=== PATIENT | female | born 1945 | race African-American/Black ===

== ENCOUNTER 2023-04-25 15:34 | Emergency (ER) | payer BC ==
[~2023-04-25] VITALS: Ht 165.1 cm; Wt 47.0 kg
[2023-04-25 15:53] VITALS: BP 135/53; PULSE 70; RESP 18; O2SAT 99
== END 2023-04-25 20:48 | disposition left against medical advice (07) ==
LOC: ER 15:34
DX: M25.562 Pain in left knee (principal); M25.561 Pain in right knee; W18.09XA Striking against other object with subsequent fall, initial encounter; Y93.89 Activity, other specified; Y92.89 Other specified places as the place of occurrence of the external cause; Y99.8 Other external cause status
CPT/HCPCS: 73562

== ENCOUNTER 2023-04-26 14:29 | Emergency (ER) | payer BC ==
[~2023-04-26] VITALS: Ht 165.1 cm; Wt 45.4 kg
[2023-04-26 14:59] VITALS: BP 123/54; PULSE 76; RESP 20; TEMP 98.1; O2SAT 98
[2023-04-26] MEDS ORDERED: ACETAMINOPHEN 325 MG TAB PO ONE (16:30)
[2023-04-27] MEDS ORDERED: TRAM50TA2 PO (17:45)
== END 2023-04-26 16:37 | disposition left against medical advice (07) ==
LOC: ER 14:29
DX: S82.142A Displaced bicondylar fracture of left tibia, initial encounter for closed fracture (principal); I10 Essential (primary) hypertension; W18.39XA Other fall on same level, initial encounter; Y93.89 Activity, other specified; Y92.89 Other specified places as the place of occurrence of the external cause; Y99.8 Other external cause status

== ENCOUNTER 2023-04-27 16:13 | Emergency (ER) | payer BC ==
[~2023-04-27] VITALS: Ht 165.1 cm; Wt 45.4 kg
[2023-04-27 17:03] VITALS: TEMP 97.6
[2023-04-27 17:24] VITALS: BP 106/41; PULSE 69; RESP 16; O2SAT 99
[2023-04-27] MEDS ORDERED: TRAM50TA2 PO (17:45)
== END 2023-04-27 18:05 | disposition home or self-care (01) ==
LOC: ER 16:13
DX: S82.142A Displaced bicondylar fracture of left tibia, initial encounter for closed fracture (principal); I10 Essential (primary) hypertension; W19.XXXA Unspecified fall, initial encounter; Y93.89 Activity, other specified; Y92.89 Other specified places as the place of occurrence of the external cause; Y99.8 Other external cause status
CPT/HCPCS: 29505; 73700